=== PATIENT | female | born 1960 | race Caucasian/White ===

== ENCOUNTER 2020-11-12 12:48 | Outpatient (CLI) | payer MEDICARE, MEDICAID, SELFPAY ==
--- NOTE | ~2020-11-12 | CT_ITS ---
EXAMINATION: CT abdomen pelvis wo con DATE: 11/12/2020 13:43 INDICATION: Hematuria. Bladder urgency. TECHNIQUE: Computed tomography (CT) of the abdomen and pelvis was performed without intravenous contr ast. Automated exposure control and iterative reconstruction technique were employed. The dose-length product was 330.30 mGy-cm. COMPARISON: None. FINDINGS: The visualized portions of the lung bases are clear without pneumonia or pleural effusion. The heart size is normal. No pericardial effusion. The liver, gallbladder, spleen, pancreas, and righ t adrenal gland are normal. There is a 14 mm mass in left adrenal gland measuring low-attenuation, co nsistent with an adenoma. Right kidney is normal. There is a 5 mm stone in left kidney. There is a 2 mm calcification in the area of the urethra. There is diverticulosis of the colon without evidence of diverticulitis. There are no dilated loops of bowel. The appendix is normal. There are no pathologic ally enlarged lymph nodes. Pelvic floor relaxation is noted. There is no free intraperitoneal fluid. There is mild lumbar spondylosis. IMPRESSION: 1. 5 mm nonobstructing left kidney stone. 2. 2 mm calcification in the area of the urethra that may be a stone. 3. Pelvic floor relaxation. Reviewed, dictated and finalized at location B.
== END 2020-11-12 12:49 | disposition home or self-care (01) ==
PROVIDERS: PCP Internal Medicine; Visit Provider Nurse Practitioner
DX: N20.2 Calculus of kidney with calculus of ureter (principal)
CPT/HCPCS: 74176

== ENCOUNTER 2021-01-23 07:25 | Outpatient (CLI) | payer MEDICARE, MEDICAID, SELFPAY ==
--- NOTE | ~2021-01-23 | CT_ITS ---
EXAMINATION: CT abdomen pelvis w con DATE: 01/23/2021 08:27 INDICATION: Microhematuria. Left-sided abdominal pain. Left adrenal nodule, left renal stone. TECHNIQUE: Computed tomography (CT) of the abdomen and pelvis was performed with 100 cc Omnipaque 350 intravenous contrast. Automated exposure control and iterative reconstruction technique were employe d. Exam dose: 324.63 mGy-cm total exam DLP. COMPARISON: 11/12/2020 CT abdomen pelvis FINDINGS: The lung bases are clear. Heart size is within normal limits. No pericardial or pleural eff usion. Small sliding hiatal hernia. Approximately 12 x 17 mm hypoenhancing lesion of the lateral aspect of the right hepatic lobe, most l ikely a hemangioma. Consider dynamic CT abdominal examination with IV contrast material or hepatic ul trasound examination. The liver is otherwise unremarkable. No bile duct dilatation. The gallbladder is present. No gallblad navneet wall thickening or pericholecystic fluid or fat stranding. No pancreatic mass lesion, calcification or ductal dilatation is detected. Normal splenic size. Probable 1.5 mm left adrenal adenoma. 1 cm upper pole right renal cyst Nonobstructing 4 mm left renal calculus. No urinary tract calculus or hydroureteronephrosis is detect ed. The urinary bladder is unremarkable. Uterus and adnexal areas are unremarkable. There is atherosclerotic change. No aneurysm of the abdominal aorta. No intraperitoneal or retroperit nunez or pelvic mass lesion or adenopathy or ascites. Normal appendix. Mild colonic diverticulosis; no CT evidence of diverticulitis. No bowel obstruction, bowel wall thickening, pneumatosis or intraperitoneal free air. Very small fat-containing umbilical hernia. Included skeletal structures are unremarkable. IMPRESSION: 12 x 17 mm hypoenhancing lesion of the right hepatic lobe, possibly a hemangioma. This c an be further evaluated by dynamic CT abdomen examination with IV contrast material or hepatic ultras ound examination. Nonobstructing 4 mm left renal calculus 1 cm upper pole right renal cyst 1.4 cm left adrenal probable adenoma Mild colonic diverticulosis Reviewed, dictated and finalized at Location A. Reviewed, dictated and finalized at location B. IMPRESSION: 12 x 17 mm hypoenhancing lesion of the right hepatic lobe, possibl y a hemangioma. This can be further evaluated by dynamic CT abdomen examination with IV contrast material or hepatic ultrasound examination. Nonobstructing 4 mm left renal calculus 1 cm upper pole right renal cyst 1.4 cm left adrenal probable adenoma Mild colonic diverticulosis
== END 2021-01-23 07:26 | disposition home or self-care (01) ==
LOC: ANHIMG 07:35
PROVIDERS: PCP Internal Medicine; Visit Provider Nurse Practitioner
DX: N20.0 Calculus of kidney (principal); E27.8 Other specified disorders of adrenal gland; R31.29 Other microscopic hematuria; K57.30 Diverticulosis of large intestine without perforation or abscess without bleeding; D35.02 Benign neoplasm of left adrenal gland; N28.1 Cyst of kidney, acquired
CPT/HCPCS: 74177; Q9967

== ENCOUNTER 2021-03-25 09:31 | Outpatient (CLI) | payer MEDICARE, MEDICAID, SELFPAY ==
--- NOTE | ~2021-03-25 | DEXA_ITS ---
Bone Density Report Name: Maame Mayer Age: 60 Sex: Female Ethnicity: White Date of : 1960 Indication: osteopenia; height loss; inflammatory bowel disease; postmenopausal Referring Provider: Leora oRdriguez Study: Bone densitometry was performed. Exam Date: March 25, 2021 Accession number: [id number] Bone Density: Region BMD T-score Z-score Classification AP Spine (L1-L4) 0.804 -2.2 -0.7 Osteopenia Femoral Neck (Left) 0.697 -1.4 0.0 Osteopenia Total Hip (Left) 0.780 -1.3 -0.3 Osteopenia Total Hip Bilateral Avg 0.795 -1.2 -0.2 Osteopenia Femoral Neck (Right) 0.670 -1.6 -0.3 Osteopenia Total Hip (Right) 0.809 -1.1 -0.1 Osteopenia World Health Organization criteria for BMD impression classify patients as: Normal (T-score at or above -1.0), Osteopenia (T-score between -1.0 and -2.5), or Osteoporosis (T-score at or below -2.5). 10-year Fracture Risk(1): Major Osteoporotic Fracture 8.5% Hip Fracture 0.8% Reported Risk Factors: [place] (), Neck BMD=0.670, BMI=28.3 (1) FRAX(R) Version 3.08. Fracture probability calculated for an untreated patient. Fracture probability may be lower if the patient has received treatment. Previous Exams: Region Exam Age BMD T-score BMD Change BMD Change Date g/cm2 vs Baseline vs Previous AP Spine(L1-L4) 03/25/2021 60 0.804 -2.2 -0.012(-1.4%) -0.012(-1.4%) 01/10/2019 58 0.816 -2.1 Total Hip(Left) 03/25/2021 60 0.780 -1.3 -0.008(-1.0%) -0.008(-1.0%) 01/10/2019 58 0.787 -1.3 Total Hip(Right) 03/25/2021 60 0.809 -1.1 -0.019(-2.3%) -0.019(-2.3%) 01/10/2019 58 0.829 -0.9 *Denotes significance at 95% confidence level, LSC for AP Spine = 0.022 g/cm2, LSC for Total Hip = 0.027 g/cm2 Clinical Information Provided by Patient: Has used the following medications: Vitamin D Has the following medical conditions: Inflammatory bowel diseases Patient maximum height was 62 Menopause Age: 52 No regular weight bearing exercise Does not regularly consume dairy products Onset of menses at age 8 Number of children 1 Impression: The patient has low bone mass, based on the Total Spine T-score. The patient has an estimated ten-year risk of hip fracture of 0.8% and an estimated ten-year risk of major fracture of 8.5%, based on the WHO FRAX algorithm. No significant bone loss was observed. Discussion: BONE DENSITY IS LOW AT ONE OR MORE SKELETAL SITES. This patient's lowest T-score is low at one o
== END 2021-03-25 09:32 | disposition home or self-care (01) ==
PROVIDERS: PCP Internal Medicine; Visit Provider Nurse Practitioner
DX: Z78.0 Asymptomatic menopausal state (principal); M85.88 Other specified disorders of bone density and structure, other site; M85.851 Other specified disorders of bone density and structure, right thigh; M85.852 Other specified disorders of bone density and structure, left thigh
CPT/HCPCS: 77080

== ENCOUNTER 2021-03-28 12:10 | Outpatient (CLI) | payer MEDICARE, MEDICAID, SELFPAY ==
--- NOTE | ~2021-03-28 | XR_ITS ---
XR chest 2V DATE: 03/28/2021 12:29 INDICATION: Shortness of breath TECHNIQUE: PA and lateral views COMPARISON: 07/21/2018 2 view chest FINDINGS: Normal heart size. No hilar or mediastinal enlargement. No pulmonary infiltrate or consolidation, pleural effusion or pulmonary vascular congestion or pneumo thorax. IMPRESSION: No active cardiopulmonary disease Reviewed, dictated and finalized at location A.
== END 2021-03-28 12:11 | disposition home or self-care (01) ==
PROVIDERS: PCP Internal Medicine; Visit Provider Nurse Practitioner
DX: R06.02 Shortness of breath (principal)
CPT/HCPCS: 71046

== ENCOUNTER 2021-04-23 11:00 | Outpatient (CLI) | payer MEDICARE, MEDICAID, SELFPAY ==
[2021-04-23 11:58] LABS: Cholesterol 220 mg/dL (0-200); HDL Direct 54 mg/dL; Triglycerides 179 mg/dL (<150)
[2021-04-23 12:10] LABS: LDL Cholesterol Direct 136 mg/dL
--- NOTE | 2021-04-23 14:54 | WPDPFTINT ---
PFT Procedure Performed PFT Procedure Performed Spirometry with Pre/Post Bronchodilator Plethysmography (Lung Vol) Diffusing Cap (DLCO) Flow Vol Loop PFT Interpretation Lung volumes were measured with the body plethysmography method. The lung volumes are unremarkable. Spirometry showed normal expiratory flow rates and a normal FEV1 to FVC ratio of 82%. Following administration of a bronchodilator there was no significant increase in expiratory flow rates. Lung diffusion capacity is within the normal range. Flow volume loop is unremarkable. Impression: Spirometry, lung volumes, and lung diffusion capacity all within the normal range.
== END 2021-04-23 11:01 | disposition home or self-care (01) ==
PROVIDERS: PCP Internal Medicine; Referring Provider Nurse Practitioner; Visit Provider Nurse Practitioner
DX: R06.02 Shortness of breath (principal); E78.2 Mixed hyperlipidemia
CPT/HCPCS: 36415; 80061; 94060; 94726; 94729

== ENCOUNTER 2021-12-23 11:58 | Outpatient (CLI) | payer MEDICARE, MEDICAID, SELFPAY ==
--- NOTE | ~2021-12-23 | XR_ITS ---
EXAMINATION: XR chest 2V 12/23/2021 12:25 INDICATION: Shortness of breath and cough PROCEDURE: 2 view chest COMPARISON: Comparison to multiple prior studies sequentially, with oldest reviewed study dated 07/21. FINDINGS: The lungs are clear. The cardiomediastinal silhouette is within normal limits. There are no pleural effusions. There is no pneumothorax suspected. IMPRESSION: 1: NO ACUTE CARDIOPULMONARY DISEASE. Reviewed, dictated and finalized at location A.
== END 2021-12-23 11:59 | disposition home or self-care (01) ==
PROVIDERS: PCP Internal Medicine; Visit Provider Clinical Nurse Specialist
DX: R06.02 Shortness of breath (principal)
CPT/HCPCS: 71046

== ENCOUNTER 2022-03-25 10:04 | Outpatient (CLI) | payer MEDICARE, MEDICAID, SELFPAY | END 2022-03-25 10:05 | disposition home or self-care (01) | LOC: ANHGOSHLAB 10:09 | PROVIDERS: PCP Internal Medicine; Visit Provider Nurse Practitioner | DX: F41.9 Anxiety disorder, unspecified (principal); F32.9 Major depressive disorder, single episode, unspecified; E78.2 Mixed hyperlipidemia; E55.9 Vitamin D deficiency, unspecified | CPT/HCPCS: 99199; 36415 ==

== ENCOUNTER 2022-05-26 13:05 | Outpatient (CLI) | payer MEDICARE, MEDICAID, SELFPAY ==
--- NOTE | ~2022-05-26 | XR_ITS ---
EXAM: XR lumbar spine 2-3V DATE: 05/26/2022 13:34 HISTORY: M54.50 - Low back pain, unspecified, Lt sided pain . COMPARISON: None available. FINDINGS: 5 nonrib-bearing lumbar-type vertebral bodies. Pedicles intact. Normal vertebral body alig nment. Vertebral body heights preserved. Multilevel disc space narrowing and marginal osteophytosis. Multilevel facet sclerosis and hypertrophy. No fracture or dislocation. IMPRESSION: Multilevel mild degenerative disc disease and facet arthropathy. Reviewed, dictated and finalized at location K. [employer]
== END 2022-05-26 13:06 | disposition home or self-care (01) ==
PROVIDERS: PCP Internal Medicine; Visit Provider Nurse Practitioner
DX: M51.36 Other intervertebral disc degeneration, lumbar region (principal); M54.50 Low back pain, unspecified; W19.XXXA Unspecified fall, initial encounter
CPT/HCPCS: 72100

== ENCOUNTER 2022-08-17 11:39 | Outpatient (CLI) | payer MEDICARE, MEDICAID, SELFPAY ==
--- NOTE | ~2022-08-17 | MR_ITS ---
EXAMINATION: MR brain/brain stem wo/w con DATE: 08/17/2022 12:49 INDICATION: Dizziness. TECHNIQUE: Magnetic resonance imaging (MRI) of the brain and brainstem was performed without and with 14 mL MultiHance intravenous contrast. COMPARISON: None. FINDINGS: There are scattered areas of nonspecific increased T2-weighted signal intensity in the cere bral white matter. There is an old lacunar infarct in the left basal ganglia. There is no intracrania l hemorrhage, acute infarction, or abnormal intracranial mass lesion. The ventricles are normal in si ze. The paranasal sinuses are clear. The orbits are normal. The mastoid air cells are normal. IMPRESSION: 1. Old lacunar infarct in the left basal ganglia. 2. Mild nonspecific cerebral white matter disease, which likely represents chronic small vessel ische valdemar disease. Reviewed, dictated and finalized at location A. HOLE DIGGER IMPRESSION: 1. Old lacunar infarct in the left basal ganglia. 2. Mild nonspecific cerebral white matter disease, which likely represents seat scooper machine marilyn small vessel ischemic disease.
== END 2022-08-17 11:40 | disposition home or self-care (01) ==
PROVIDERS: PCP Internal Medicine; Visit Provider Nurse Practitioner
DX: R42 Dizziness and giddiness (principal); R93.0 Abnormal findings on diagnostic imaging of skull and head, not elsewhere classified
CPT/HCPCS: 70553; A9577

== ENCOUNTER 2023-04-08 08:39 | Outpatient (RCR) | payer MEDICARE, MEDICAID, SELFPAY ==
--- NOTE | 2023-04-08 09:55 | OPREHPOC ---
Outpatient Therapy Plan of Care This is a Multidisciplinary Plan of Care that may contain components documented by all disciplines (PT, OT, and ST.) PT Problem 1 PT Problem #1 Knowledge Deficit PT Goal 1 Goal Pt to be IND with issued HEP Target Visit 8 PT Problem 2 PT Problem #2 Pain PT Goal 1 Goal Pt to report neck pain no greater than 3/10 in the last week Target Visit 8 PT Goal 2 Goal Pt to report 75% improvement in overall symptoms. Target Visit 8 PT Problem 3 PT Problem #3 Pain PT Goal 1 Goal Pt to report no more than 1 WOO day in the last week Target Visit 8 PT Problem 4 PT Problem #4 Impaired Range of Motion PT Goal 1 Goal Pt to improve cervical flexion and extension to 45 deg ea Target Visit 8 PT Goal 2 Goal Pt to increase cervical lateral flexion to 25 deg noel Target Visit 8 PT Problem 5 PT Problem #5 Impaired Functional Mobil PT Goal 1 Goal Pt to be able to lift 20lb box from ground level without an increase in symptoms. Target Visit 8
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
--- NOTE | 2023-04-16 09:40 | PCPTNOTE ---
Patient left voicemail stating she is having trouble living condition and unable to do therapy at this time. All future appointments have been canceled and patient will be discharged.
--- NOTE | 2023-04-16 10:52 | PTOPDC ---
Assessment and note entered by Torsten Rivas, PT, DPT Evaluation Information Assessment Status Discharge - Pt Not Present Diagnosis neck pain Onset 10/2022 Subjective Information Pt called the clinic today to cancel all of her remaining appointments. She stated in her voicemail that is having issues with her living situations and cannot continue with therapy at this time. She will be discharged per pt request. Assessment PT Clinical Summary Maame was evaluated on 04/08/23 and did not complete any subsequent appointments.
== END 2023-04-16 15:05 | disposition home or self-care (01) ==
LOC: ANHGOSHPT 08:39
PROVIDERS: PCP Internal Medicine; Visit Provider Clinical Nurse Specialist
DX: M54.2 Cervicalgia (principal)
CPT/HCPCS: 97110; 97140; 97161

== ENCOUNTER 2023-07-14 16:19 | Emergency (ER) | payer MEDICARE, MEDICAID, SELFPAY ==
--- NOTE | ~2023-07-14 | XR_ITS ---
EXAMINATION: [id number]_CR DATE: 07/14/2023 16:43 INDICATION: Right rib pain. Fall. TECHNIQUE: An anteroposterior view of the chest and 2 views of the right ribs were obtained. COMPARISON: Chest 2 views 12/23/2021, CT abdomen and pelvis 07/26/2020 FINDINGS: There is no pneumonia, pleural effusion, or pneumothorax. The heart size is normal. There i s a nondisplaced fracture of right seventh rib. IMPRESSION: 1. Nondisplaced fracture of right seventh rib. Reviewed, dictated and finalized at location E. [facility]
[2023-07-14 16:31] VITALS: BP 167/85; PULSE 88; RESP 16; TEMP 37.1; O2SAT 100
--- NOTE | 2023-07-14 16:59 | ED.GENADULT ---
HPI - General Adult General Chief complaint: Back Pain/Injury Stated complaint: R RIB PAIN Time Seen by Provider: 07/14/23 16:48 Source: patient and RN notes reviewed Mode of arrival: ambulatory Limitations: no limitations History of Present Illness HPI narrative: Patient presents today complaining of right posteriolateral rib pain. Patient slipped on some ice while taking her dogs outside 2 days ago, and fell, striking her right flank area on a wooden step at her home. She currently rates her pain at rest 3/10, but this increases with any deep breathing or movement. She reports significantly increased pain when she tries to lay down at night. Denies shortness of breath. She has tried Tylenol without much relief. Related Data Home Medications Medication Instructions Recorded Confirmed Lactobacills gasseri-Bifidobac 1 cap PO .QD 05/03/19 07/14/23 bifidum,longum 1.5 billion cell capsule ([employer]) acetaminophen 650 mg 1,300 mg PO Q8H 05/03/19 07/14/23 tablet,extended release (8 Hour Pain Reliever) Allergies Allergy/AdvReac Type Severity Reaction Status Date / Time omeprazole Allergy Unknown heart Verified 07/14/23 16:45 palpitations Review of Systems Review of Systems: CONSTITUTIONAL: Denies body aches, fever, chills, or sweats. EYES: Denies visual changes, redness, or discharge. ENT: Denies rhinorrhea, congestion, sore throat, or otalgia. CARDIOVASCULAR: Denies chest pain, palpitations, or edema. RESPIRATORY: Denies cough or dyspnea.+ right rib pain GASTROINTESTINAL: Denies abdominal pain, nausea, vomiting, or diarrhea. GENITOURINARY: Denies dysuria or hematuria. SKIN: Denies rash, itching, or wounds. MUSCULOSKELETAL: Denies back pain, joint pain, or myalgia. NEUROLOGIC: Denies headache, numbness, tingling, or weakness. PSYCH: Denies depression or anxiety. [facility] Past Medical History Medical History Abnormal mammogram Anxiety and depression Aspiration pneumonia due to vomit Benign mole Chronic fatigue Chronic GERD Chronic midline low back pain without sciatica Chronic right shoulder pain Chronic tension-type headache, not intractable Cough Essential hypertension Flank pain, acute Hematuria HLD (hyperlipidemia) Plantar fasciitis Plantar fasciitis Shortness of breath Sleep apnea Sore throat Spasmatic colon Vitamin D deficiency Surgical History Surgical History H/O dilation and curettage H/O laparoscopy History of tonsillectomy Family History Family History Grandparent Hypertension Family history of transient ischemic attacks Mother Hypertension Diabetes mellitus Father Family history of coronary artery disease Other Cerebral hemorrhage Social History Social History Social History: caffeine-none Smoking status: Former smoker Smoking end date: 06/21/05 Alcohol intake: former Comments At time of signature, I have reviewed and agree with nursing past medical, surgical, social and family history unless otherwise noted. Please see nursing chart for further information. There is no relevant family history pertinent to the presenting complaint Exam Narrative: GENERAL: Well-appearing, well-nourished, and in no acute distress. HEAD: Normocephalic, atraumatic. EYES: EOMI. No redness or drainage. Conjunctivae normal. ENT: Mucous membranes pink and moist. NECK: Normal AROM. CHEST: No respiratory distress. Clear to auscultation. Large area of ecchymosis to the right posterior lower ribs. This area is tender to palpation. HEART: Regular rate and rhythm. No murmur appreciated. EXTREMITIES: Normal range of motion. No edema. SKIN: Warm, dry, no rash. Capillary refill normal. Normal skin turgor. NEURO: No
== END 2023-07-14 17:08 | disposition home or self-care (01) ==
PROVIDERS: Emergency Provider Nurse Practitioner; PCP Nurse Practitioner
DX: S22.32XA Fracture of one rib, left side, initial encounter for closed fracture (principal); S27.9XXA Injury of unspecified intrathoracic organ, initial encounter; W19.XXXA Unspecified fall, initial encounter; K21.9 Gastro-esophageal reflux disease without esophagitis; I10 Essential (primary) hypertension
CPT/HCPCS: 71101; 99213; G0463

== ENCOUNTER 2023-08-05 07:41 | Outpatient (CLI) | payer MEDICARE, MEDICAID, SELFPAY ==
--- NOTE | ~2023-08-05 | DEXA_ITS ---
Bone Density Report Name: MELIZA BECKHAM Age: 62 Sex: Female Ethnicity: White Date of : 1960 Indication: postmenopausal; screening for osteoporosis; height loss; Referring Provider: MICHAEL MONTEZ Study: Bone densitometry was performed. Exam Date: August 05, 2023 Accession number: [id number] Bone Density: Region BMD T-score Z-score Classification AP Spine(L1-L4) 0.843 -1.9 -0.2 Osteopenia Femoral Neck (Left) 0.710 -1.2 0.2 Osteopenia Total Hip (Left) 0.823 -1.0 0.2 Normal Femoral Neck (Right) 0.685 -1.5 0.0 Osteopenia Total Hip (Right) 0.850 -0.8 0.4 Normal Total Hip Mean 0.836 -0.9 0.3 Normal World Health Organization criteria for BMD impression classify patients as: Normal (T-score at or above -1.0), Osteopenia (T-score between -1.0 and -2.5), or Osteoporosis (T-score at or below -2.5). 10-year Fracture Risk: FRAX not reported because: Treated for osteoporosis Clinical Information Provided by Patient: Is being treated for osteoporosis Has used the following medications: Fosamax (i.e. alendronate) Patient maximum height was 61 Menopause Age: 52 No regular weight bearing exercise Onset of menses at age 8 Number of children 1 Impression: The patient has low bone mass, based on the Total Spine T-score. Discussion: It is important to ask patients whether they are taking their medications and to encourage continued and appropriate compliance with their osteoporosis therapies to reduce fracture risk. It is also important to review their risk factors and encourage appropriate calcium and vitamin D intakes, exercise, fall prevention and other lifestyle measures. Follow-Up: Consider a repeat BMD and Vertebral Fracture Assessment (VFA) exam in 2 years or sooner if medically necessary, to reassess this patient's status. Reported by: [facility] on 08/05/2023 8:11:00 AM. Reviewed, dictated and finalized at location AJosiah SIDDIQUI
== END 2023-08-05 07:42 | disposition home or self-care (01) ==
PROVIDERS: PCP Nurse Practitioner; Visit Provider Nurse Practitioner
DX: Z78.0 Asymptomatic menopausal state (principal); M85.88 Other specified disorders of bone density and structure, other site; M85.852 Other specified disorders of bone density and structure, left thigh; M85.851 Other specified disorders of bone density and structure, right thigh
CPT/HCPCS: 77080

== ENCOUNTER 2023-10-23 19:16 | Emergency (ER) | payer MEDICARE, MEDICAID, SELFPAY ==
[2023-10-23] VITALS (12 sets, daily range): BP systolic 133–190; BP diastolic 72–115; PULSE 84–99; RESP 13–25; TEMP 36.8; O2SAT 94–100
--- NOTE | ~2023-10-23 | XR_ITS ---
EXAMINATION: XR chest 2V Exam Date/Time: 10/23/2023 20:33 CDT HISTORY: cp Comparison: 12/23/2021. RESULT: Lines, tubes, and devices: None. Lungs and pleura: Clear. Cardiomediastinal silhouette: Stable. Other: No acute osseous or upper abdominal finding. IMPRESSION: No acute cardiopulmonary process. Reviewed, dictated and finalized at location K.
--- NOTE | 2023-10-23 19:17 | ECG_ITS ---
SEE SCANNED COPY FOR CONFIRMED REPORT MTDD
[2023-10-23 19:43] LABS: Basophils Absolute Auto 0.1 K/mm3 (0.0-0.1); Basophils Percent Auto 0.9 % (0.2-1.2); Eosinophils Absolute Auto 0.1 K/mm3 (0-0.3); Eosinophils Percent Auto 1.8 % (0-4.4); Hematocrit 37.6 % (37.0-47.0); Hemoglobin 12.3 g/dL (12.0-15.0); Immature Granulocyte Absolute 0.01 K/mm3 (0.00-0.031); Immature Granulocyte Percent A 0.2 % (0-0.5); Lymphocytes Absolute Auto 2.38 K/mm3 (0.9-3.2); Lymphocytes Percent Auto 43.4 % (18.3-44.2); Mean Corpuscular HGB Conc 32.7 g/dl (32-36); Mean Corpuscular Volume 85.5 fl (80-100); Mean Platelet Volume 9.3 fl (7.4-10.4); Monocytes Absolute Auto 0.5 K/mm3 (0.1-0.6); Monocytes Percent Auto 9.5 % (2.6-8.5); Neutrophils Absolute Auto 2.4 K/mm3 (1.3-6.7); Neutrophils Percent Auto 44.2 % (45.5-73.1); Platelet Count Result 318 k/mm3 (150-375); Red Cell Distribution Width 12.5 % (11.5-14.5); White Blood Count 5.5 K/mm3 (4.5-10.0)
[2023-10-23 19:52] LABS: Alanine Aminotransferase 28 U/L (6-35); Albumin Level 4.9 g/dL (3.5-5.1); Alkaline Phosphatase 90 U/L (38-126); Anion Gap 10 mmol/L (4-12); Aspartate Amino Transferase 34 U/L (14-36); Bilirubin,Total 0.5 mg/dL (0.2-1.3); Blood Urea Nitrogen 10 mg/dL (7-17); Calcium 10.3 mg/dL (8.4-10.2); Carbon Dioxide 27 mmol/L (22-30); Chloride 102 mmol/L (98-107); Estimated CRCL calculation 57 ml/min; Estimated Glomerular Filt Rate > 60; Glucose 107 mg/dL (65-110); Lipase 136 U/L (23-300); Potassium 3.4 mmol/L (3.4-5.0); Sodium 139 mmol/L (137-145)
[2023-10-23 19:54] LABS: INR 0.9; Prothrombin Time 12.7 Seconds (11.1-14.7)
[2023-10-23 20:06] LABS: Troponin I 0.037 ng/mL (0.000-0.034)
[2023-10-23] MEDS: NITROGLYCERIN SL 0.4 MG TABLET SUBLINGUAL (20:21)
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
== END 2023-10-23 22:20 | disposition left against medical advice (07) ==
PROVIDERS: Emergency Provider Emergency Medicine; PCP Internal Medicine
DX: R07.9 Chest pain, unspecified (principal); R79.89 Other specified abnormal findings of blood chemistry; I10 Essential (primary) hypertension; E78.5 Hyperlipidemia, unspecified; E55.9 Vitamin D deficiency, unspecified; G47.30 Sleep apnea, unspecified; K21.9 Gastro-esophageal reflux disease without esophagitis; Z87.891 Personal history of nicotine dependence
CPT/HCPCS: 36415; 71046; 80053; 83690; 84484; 85025; 85610; 85730; 93005; 99284; A9270

== ENCOUNTER 2024-04-11 08:47 | Outpatient (CLI) | payer MEDICARE, MEDICAID, SELFPAY ==
--- NOTE | ~2024-04-11 | XR_ITS ---
[id number] Ordering provider: Leora Rodriguez NP History: . RT LAT RIB FX 07/14 [facility] . Comparison: None. FINDINGS: BONES: No fractures in the right fifth, sixth, and seventh ribs. MEDIASTINUM: The cardiac silhouette is not enlarged. LUNGS: No effusions or infiltrates. No pneumothorax. SOFT TISSUES: Normal. IMPRESSION: Fracture of the right fifth, sixth and seventh ribs. Reviewed, dictated and finalized at location A.
== END 2024-04-11 08:48 | disposition home or self-care (01) ==
PROVIDERS: PCP Internal Medicine; Visit Provider Nurse Practitioner
DX: S22.41XA Multiple fractures of ribs, right side, initial encounter for closed fracture (principal); X58.XXXA Exposure to other specified factors, initial encounter
CPT/HCPCS: 71110

== ENCOUNTER 2024-04-20 10:28 | Emergency (ER) | payer MEDICARE, MEDICAID, SELFPAY ==
--- NOTE | 2024-04-20 10:51 | ED.DENTAL ---
HPI - Dental/Oral General Chief complaint: Dental/Oral Stated complaint: Dental Pain Time Seen by Provider: 04/20/24 10:52 Source: patient, RN notes reviewed and old records reviewed Mode of arrival: ambulatory Limitations: no limitations History of Present Illness HPI Narrative: 63-year-old female to Express Care with complaint of left upper molar pain. patient reports this initially started a foul, bitter taste in her mouth 2 weeks ago. Patient reports knowing that she has needed to get dental work completed has not yet done so. Patient states that area is sensitive to touch and is throbbing. Patient states this due to insurance reasons, she does not currently have a dentist. However she has An appointment scheduled with a new dentist June 27 When her insurance changes. Patient able to tolerate fluids by mouth. Patient denies difficulty swallowing. Patient resting comfortably in exam room in no acute distress. Related Data Home Medications Medication Instructions Recorded Confirmed acetaminophen 650 mg 1,300 mg PO Q8H 05/03/19 01/26/24 tablet,extended release (8 Hour Pain Reliever) Allergies Allergy/AdvReac Type Severity Reaction Status Date / Time omeprazole Allergy Unknown heart Verified 04/20/24 10:55 palpitations Adhesive tape Allergy Intermediate rash Uncoded 04/20/24 10:55 Review of Systems Review of Systems: All systems reviewed & are unremarkable except as noted in HPI and below Constitutional: Constitutional: Reports no additional constitutional complaints Eyes: Eyes: Reports no additional eye complaints ENT: Reports as per HPI and Reports dental pain ( Upper left molar) Cardiovascular: Cardiovascular: Reports no additional cardiovascular complaints, Denies chest pain and Denies dyspnea Respiratory: Respiratory: Reports no additional respiratory complaints, Denies cough and Denies dyspnea Musculoskeletal: Musculoskeletal: Reports no additional musculoskeletal complaints Neurologic: Reports system reviewed and no additional complaints, except as documented Psychiatric: Psychiatric: Reports no additional psychiatric complaints [facility] Past Medical History Medical History Abnormal mammogram Anxiety and depression Aspiration pneumonia due to vomit Benign mole Chronic fatigue Chronic GERD Chronic midline low back pain without sciatica Chronic right shoulder pain Chronic tension-type headache, not intractable Cough Essential hypertension Flank pain, acute Hematuria HLD (hyperlipidemia) Plantar fasciitis Plantar fasciitis Shortness of breath Sleep apnea Sore throat Spasmatic colon Vitamin D deficiency Surgical History Surgical History H/O dilation and curettage H/O laparoscopy History of tonsillectomy Family History Family History Grandparent Hypertension Family history of transient ischemic attacks Mother Hypertension Diabetes mellitus Father Family history of coronary artery disease Other Cerebral hemorrhage Social History Social History Social History: caffeine-none Smoking status: Former smoker Smoking end date: 06/21/05 Alcohol intake: former Comments At the time of my signature, I reviewed and agree with the nursing past medical, surgical, social, and family history. There is no relevant family history pertinent to the patient complaint. Exam Const: General: cooperative, healthy appearing, no acute distress, well developed, alert, well groomed and well nourished Nutritional Appearance: well nourished Orientation/consciousness: patient oriented x3 Limitations: no limitations HENMT: Head: normal to inspection Ears: external ears normal Face/Nose/Sinus: Normal external nose present, Normal nares present, normal facial exam, No erythema and No edema Face and sinus: normal facial exam, no erythema and no edema Mouth: Yes Normal oral and palatal mucosa present Teeth and gingiva: abnormal tooth and associated gingiva upper left second molar tender and with associated gingival edema Eyes: General: appearance normal, both eyes and all related structures Neck: Neck: normal visual inspection, full ROM and no meningeal signs Lymphatic: no lymphadenopathy noted and no lymphedema noted Chest: Chest palpation & inspection: normal inspection of the chest Resp: Effort & Inspection: normal respiratory effort and able to speak in complete sentences Auscultation: clear to auscultation bilaterally Cardio: Jugular venous distension: no JVD Rate: regular rate Rhythm: regular rhythm Back/Spine/Pelvis: Cervical Spine: cervical ROM normal Skin: General skin exam: normal color, no rashes or lesions noted and turgor normal Neuro: General: patient oriented x3, gait normal, moves all extremities and no meningeal signs Speech: normal speech Gait exam (Neuro): Normal gait present Extrem: General: normal to inspection, full ROM and capillary refill normal Psych: Appearance: grossly normal and well kempt Course Course Emergency Course: Some parts of this dictation were generated by voice recognition software and may contain typographical and/or grammatical inaccuracies. Level of Care: Express Care Visit Vital Signs Vital signs: Vital Signs Temperature 36.6 C 04/20/24 11:00 Pulse Rate 75 04/20/24 11:00 Respiratory Rate 16 04/20/24 11:00 Blood Pressure 145/80 H 04/20/24 11:00 Pulse Oximetry 100 04/20/24 11:00 Temperature 36.6 C 04/20/24 11:00 Pulse Rate 75 04/20/24 11:00 Respiratory Rate 16 04/20/24 11:00 Blood Pressure 145/80 H 04/20/24 11:00 Pulse Oximetry 100 04/20/24 11:00 reviewed MDM - Dental/Oral MDM Narrative Medical decision making narrative: 63-year-old female to Express Care with complaint of left upper molar pain. patient reports this initially started a foul, bitter taste in her mouth 2 weeks ago. Patient reports knowing that she has needed to get dental work completed has not yet done so. Patient states that area is sensitive to touch and is throbbing. Patient states this due to insurance reasons, she does not currently have a dentist. However she has An appointment scheduled with a new dentist June 27 When her insurance changes. Patient able to tolerate fluids by mouth. Patient denies difficulty swallowing. Patient resting comfortably in exam room in no acute distress. on exam, gingival erythema, tenderness, drainage surrounding remains left upper 2nd molar. Consistent with dental abscess. Patient is sitting comfortably in exam room nontoxic in appearance. Patient appropriate for outpatient treatment and follow-up. Discharge instructions reviewed with patient, as well as provided in writing per nursing staff. The instructions also include specific and strict return/GO TO THE ER as well as f/u information. All questions have been answered, and the patient deny any further questions with discharge and discharge plan. Some parts of this dictation were generated by voice recognition software and may contain typographical and/or grammatical inaccuracies. Differential Diagnosis Differential diagnosis: Likely gingival abscess, dental caries, toothache, dental abscess, fracture of tooth and aphthous ulcer Discharge Plan Discharge Clinical Impression: Dental caries, Abscess, dental Patient Disposition: Home, Self-Care Condition: Stable Instructions: Dental Abscess (ED) Additional Instructions: Finish the entire course of antibiotics & use the mouthwash. After every time you eat be sure to use salt water gargles. Apply ice to face to help with pain. Dental problems can lead to other problems, so this is important to follow up with a dental provider. To solve the problem, You need to follow up with a dental provider, a list has been given to you. Please follow up with your dentist as soon as possible. Take Ibuprofen as prescribed for pain and to decrease swelling- take this with food Follow up with a Primary Care Provider (PCP) about medical needs. A PCP can help keep you healthy by preventive medicine and screening. Return to Urgent care or go to the ER for New or worsening symptoms. Prescriptions: New penicillin V potassium 500 mg tablet 500 mg PO Q6H 10 Days Qty: 40 0RF chlorhexidine gluconate [Periogard] 0.12 % mouthwash 15 ml mucous membrane BID Qty: 750 0RF No Action acetaminophen [8 Hour Pain Reliever] 650 mg tablet extended release 1,300 mg PO Q8H fluticasone propionate 50 mcg/actuation spray,suspension See Rx Instructions .ROUTE .COMPLEX Qty: 16 2RF Dose Instruction: SHAKE LIQUID AND USE 1 SPRAY IN EACH NOSTRIL DAILY Rx Instructions: SHAKE LIQUID AND USE 1 SPRAY IN EACH NOSTRIL DAILY ezetimibe [Zetia] 10 mg tablet 10 mg PO DAILY Qty: 90 1RF cetirizine 10 mg tablet See Rx Instructions .ROUTE .COMPLEX Qty: 90 1RF Dose Instruction: TAKE 1 TABLET BY MOUTH EVERY DAY Rx Instructions: TAKE 1 TABLET BY MOUTH EVERY DAY losartan 100 mg tablet 100 mg PO DAILY Qty: 90 1RF alendronate 35 mg tablet 35 mg PO WEEKLY 90 Days Qty: 12 1RF hydrochlorothiazide 12.5 mg tablet 12.5 mg PO DAILY Qty: 90 1RF pantoprazole 40 mg tablet,delayed release (DR/EC) 40 mg PO QAM Qty: 90 1RF Follow-up/Referrals: Jhonatan Cerda, [Primary Care Provider] -
[2024-04-20 11:00] VITALS: BP 145/80; PULSE 75; RESP 16; TEMP 36.6; O2SAT 100
== END 2024-04-20 11:40 | disposition home or self-care (01) ==
PROVIDERS: Emergency Provider Nurse Practitioner Family; PCP Internal Medicine
DX: K02.9 Dental caries, unspecified (principal); K04.7 Periapical abscess without sinus; Z87.891 Personal history of nicotine dependence; K21.9 Gastro-esophageal reflux disease without esophagitis; I10 Essential (primary) hypertension; E78.5 Hyperlipidemia, unspecified
CPT/HCPCS: 99213; G0463